=== PATIENT | female | born 1970 | race Caucasian/White ===

== ENCOUNTER → 2023-06-23 | Outpatient (CLI) | payer OTHER ==
--- NOTE | 2023-06-23 20:54 | MM ---
Reason for Exam: Hx of breast augmentation, asymptomatic. Last mammogram was performed 1 year(s) and 3 month(s) ago. Patient History: Menarche at age 15. First Full-Term at age 22. Postmenopausal. Patient has history of breast feeding. Maternal grandmother (great) had breast cancer at or over age 50. Mother had breast cancer at or over age 50. Risk Values: Judi 5 year model risk: 2.0%. NCI Lifetime model risk: 14.1%. Prior Study Comparison: 02/22/2019 Bilateral Screening Mammogram, [facility]. 03/09/2020 Bilateral Screening Mammogram, [facility]. 03/23/2020 Left Diagnostic Mammogram, [facility]. 10/10/2020 Left Diagnostic Mammogram, [facility]. 03/30/2022 Bilateral Screening Mammogram, [facility]. Tissue Density: The breast tissue is heterogeneously dense. This may lower the sensitivity of mammography. Findings: Analyzed By CAD. Pattern appears symmetrical and stable. Bilateral breast prostheses are present. No significant interval changes are evident. No suspicious groups of microcalcifications, spiculated or lobular masses, architectural distortion or other secondary signs of malignancy are mammographically apparent. Overall Assessment: Benign, BI-RAD 2 Management: Screening Mammogram of both breasts in 1 year. A negative mammogram report should not preclude additional follow up of suspicious palpable abnormalities. Patient should continue monthly self breast exam. A clinical breast exam by your physician is recommended on an annual basis and results should be correlated with mammographic findings. Electronically signed and approved by: Sagar Weiss D.O. Radiologis
== END | disposition home or self-care (01) ==
LOC: RADMAMWWP 07:28
PROVIDERS: ATTEND Midwife
DX: Z12.31 Encounter for screening mammogram for malignant neoplasm of breast (principal); Z78.0 Asymptomatic menopausal state; Z80.3 Family history of malignant neoplasm of breast
CPT/HCPCS: 77063; 77067

== ENCOUNTER → 2023-07-07 | Outpatient (CLI) | payer OTHER ==
--- NOTE | 2023-07-07 18:31 | US ---
EXAMINATION TYPE: US pelvis complete transvag DATE OF EXAM: 07/07/2023 COMPARISON: NONE CLINICAL INDICATION: Female, 53 years old with history of N95.0 POST MENOPAUSAL BLEEDING; 14 months w ithout a cycle then 4 days of bleeding, just had abnormal pap smear and is set up for biopsy, h/o 2 c -sections TECHNIQUE: TA/TV. Transabdominal sonographic images of the pelvis were acquired. Transvaginal sono graphic images Date of LMP: 14 months ago EXAM MEASUREMENTS: Uterus: 8.6 x 5.5 x 4.5 cm Endometrial Stripe: 1.1 cm Right Ovary: 3.7 x 2.2 x 2.0 cm Left Ovary: 2.6 x 2.7 x 2.1 cm 1. Uterus: Anteverted. There is a 4.7 x 3.8 x 3.8cm probable fundal fibroid versus other etiology 9 mm cervical nabothian cyst. 2. Endometrium: wnl 3. Right Ovary: 2 cystic areas seen, largest = 1.9 x 2.0 x 1.8cm 4. Left Ovary: wnl 5. Bilateral Adnexa: wnl 6. Posterior cul-de-sac: wnl IMPRESSION: 1. Endometrial stripe estimated at 1.1 cm which would be thickened for a postmenopausal female. In ad dition, there may be a 4.7 cm rounded area at the uterine fundus, possible fibroid. Other etiology di fficult to exclude at this time. Given patient's postmenopausal bleeding and endometrial stripe thick ening, recommend further evaluation with female pelvic MRI. 2. Two cystic lesions of the right ovary, largest measuring 2.0 cm. Abnormal in a postmenopausal fema le. These should also be followed.
== END | disposition home or self-care (01) ==
LOC: RADUSWWP 12:57
PROVIDERS: ATTEND Obstetrics & Gynecology
DX: N83.201 Unspecified ovarian cyst, right side (principal); N95.0 Postmenopausal bleeding
CPT/HCPCS: 76830; 76856

== ENCOUNTER → 2024-07-16 | Outpatient (CLI) | payer OTHER ==
--- NOTE | 2024-07-16 09:29 | MM ---
Reason for Exam: Hx of breast augmentation, asymptomatic. Last screening mammogram was performed 12 month(s) ago. Patient History: Menarche at age 15. First Full-Term at age 22. Postmenopausal. Patient has history of breast feeding. Bilateral Implants. Maternal grandmother (great) had breast cancer at or over age 50. Mother had breast cancer at or over age 50. Risk Values: Judi 5 year model risk: 2.1%. NCI Lifetime model risk: 13.9%. Prior Study Comparison: 10/10/2020 Left Diagnostic Mammogram, [facility]. 03/30/2022 Bilateral Screening Mammogram, [facility]. 06/23/2023 Bilateral MG 3D screen mammo imp/cad., [facility]. Tissue Density: The breasts are heterogeneously dense, which may obscure small masses. Findings: Analyzed By CAD. Bilateral breast implants appear intact. Right breast: There is no suspicious group of microcalcifications or new suspicious mass. Left breast: There is no suspicious group of microcalcifications or new suspicious mass. Overall Assessment: Benign, BI-RAD 2 Management: Screening Mammogram of both breasts in [address] [facility] will attempt to contact patient to return for supplemental views and ultrasound if indicated. Patient should continue monthly self-breast exams. A clinical breast exam by your physician is recommended on an annual basis. This exam should not preclude additional follow-up of suspicious palpable abnormalities. Note on Judi scores and lifetime risk: 1. A Judi score greater than 3% is considered moderate risk. If this is the case, consider specialist referral to assess eligibility for a risk reducing agent. 2. If overall lifetime risk for the development of breast cancer is 20% or higher, the patient may qualify for future screening with alternating mammogram and breast MRI. [facility], , 07/16/2024 9:24 AM. Electronically signed and approved by: Tyrese Ulloa DO
[2024-07-16 14:57] LABS: Basophils # (A) 0.03 X 10*3/uL (0.00-0.10); Basophils % (A) 0.4 %; Eosinophils # (A) 0.11 X 10*3/uL (0.04-0.35); Eosinophils % (A) 1.6 %; HCT 42.4 % (37.2-46.3); HGB 14.1 g/dL (12.0-15.0); Lymphocytes # (A) 2.02 X 10*3/uL (0.90-5.00); Lymphocytes % (A) 29.5 %; MCH 32.2 pg (27.0-32.0); MCHC 33.3 g/dL (32.0-37.0); MCV 96.8 FL (80.0-97.0); Mean Platelet Volume 10.9 FL (9.5-12.2); Monocytes # (A) 0.42 X 10*3/uL (0.20-1.00); Monocytes % (A) 6.1 %; NRBC Per 100 WBC 0 X 10*3/uL (0.00-0.01); Neutrophils # (A) 4.25 X 10*3/uL (1.80-7.70); Neutrophils % (A) 62.3 %; Platelet Count 199 X 10*3/uL (140-440); RBC 4.38 X 10*6/uL (4.10-5.20); RDW 12.2 % (11.5-14.5); WBC 6.84 X 10*3/uL (4.50-10.00)
[2024-07-16 15:25] LABS: ALT 52 U/L (8-44); AST 46 U/L (13-35); Albumin 4.5 g/dL (3.8-4.9); Alkaline Phosphatase 106 U/L (41-126); BUN/Creat Ratio 14.43 Ratio (12.00-20.00); Blood Urea Nitrogen 10.1 mg/dL (9.0-27.0); Calcium 9.8 mg/dL (8.7-10.3); Carbon Dioxide 25.2 mmol/L (21.6-31.8); Chloride 101 mmol/L (96-109); Glucose 94 mg/dL (70-110); LDL Cholesterol,Calculated 66.5 mg/dL (0.0-131.0); Potassium 4.1 mmol/L (3.5-5.5); Sodium 140 mmol/L (135-145); Total Bilirubin 0.4 mg/dL (0.3-1.2); Total Protein 7.5 g/dL (6.2-8.2); VLDL Calculation 8.46 mg/dL (5.00-40.00)
== END | disposition home or self-care (01) ==
LOC: RADMAMWWP 08:54
PROVIDERS: ATTEND Obstetrics & Gynecology
DX: Z12.31 Encounter for screening mammogram for malignant neoplasm of breast (principal); R92.333 Mammographic heterogeneous density, bilateral breasts; E55.9 Vitamin D deficiency, unspecified; Z78.0 Asymptomatic menopausal state; Z79.899 Other long term (current) drug therapy; Z80.3 Family history of malignant neoplasm of breast; Z98.82 Breast implant status
CPT/HCPCS: 77063; 77067; 80053; 80061; 82306; 82607; 82746; 84443; 85025